=== PATIENT | female | born 2000 | race Two or more races ===

== ENCOUNTER 2025-03-01 11:25 | Emergency (ER) | payer MEDICAID, SELFPAY ==
[2025-03-01 12:01] VITALS: BP 113/80; PULSE 89; RESP 17; TEMP 36.8; O2SAT 100
--- NOTE | 2025-03-01 12:12 | XR_ITS ---
Examination: CT abdomen and pelvis without contrast. Coronal 3-D reconstructions. Sagittal 2-D reconstructions. Date and time of exam:March 01, 2025 1516 hours Comparison March 13, 2024 INDICATIONS: Generalized abdominal pain and flank pain today CTDI: vol (mGy): 7.77 DLP: (mGycm): 384 Technique: Axial images of the abdomen have been obtained, 3 mm slice thickness Intravenous contrast material has not been administered. Low dose protocols were performed. One or more of the following dose reduction techniques were used; automated exposure control, adjustment of the mA and/or KV according to patient size, use of iterative reconstruction technique. Findings: No focal liver or splenic lesions No gallstones No pancreatic or adrenal mass No renal or ureteral calculi, no hydronephrosis Aorta normal size Tiny fat-containing umbilical hernia Small lymph nodes in the right lower mesentery No bowel obstruction Mild to moderate free fluid in the pelvis No bladder mass or bladder calculi No pericecal inflammatory change Osseous structures are intact IMPRESSION: No renal or ureteral calculi, no hydronephrosis No CT findings of appendicitis bowel obstruction or diverticulitis
--- NOTE | 2025-03-01 12:13 | PD.EDRME ---
Rapid Medical Screening Exam RME Arrival date/time: 03/01/25 11:25 24-year-old female presents emergency department today for complaint of abdominal pain Chief Complaint: Nausea/Vomiting/Diarrhea Vital signs: Vital Signs Temperature 98.2 F 03/01/25 12:01 Pulse Rate 89 03/01/25 12:01 Respiratory Rate 17 03/01/25 12:01 Blood Pressure 113/80 03/01/25 12:01 Pulse Oximetry (%) 100 03/01/25 12:01 Oxygen Delivery Method Room Air 03/01/25 12:01
[2025-03-01 12:34] LABS: Collection Type, Urine Clean Catch
[2025-03-01 12:40] LABS: Basophils % (Auto) 0 % (0-2.5); Eosinophils # (Auto) 0.1 Thou/mm3 (0.0-0.5); Eosinophils % (Auto) 1 % (0-10); Hematocrit 34.5 % (36.0-46.0); Hemoglobin 11.5 g/dL (12.0-16.0); Immature Granulocytes % (Auto) 0 % (0-0); Immature Granulocytes Auto 0.02 Thou/mm3 (0.00-0.00); Lymphocytes # (Auto) 2.8 Thou/mm3 (1.0-4.8); Lymphocytes % (Auto) 33 % (10-50); Mean Corpuscular HGB Conc 33.3 g/dl (31.0-37.0); Mean Corpuscular Volume 75 fL (80-100); Monocytes # (Auto) 0.6 Thou/mm3 (0.0-0.8); Monocytes % (Auto) 7 % (0-12); Neutrophils % (Auto) 59 % (37-80); Nucleated Red Blood Cell % 0 /100 WBC (0); Platelet Count 382 Thou/mm3 (140-440); RDW Standard Deviation 41.4 fL (36.4-46.3); White Blood Count 8.4 Thou/mm3 (3.6-11.0)
[2025-03-01 12:55] LABS: Alanine Aminotransferase 10 U/L (10-49); Albumin/Globulin Ratio 1.9 (1.2-2.2); Alkaline Phosphatase 90 U/L (46-116); Anion Gap 11 (7-16); Aspartate Amino Transferase 16 U/L (0-34); BUN/Creatinine Ratio 15 Ratio (12-20); Bilirubin,Total 0.4 mg/dL (0.3-1.2); Blood Urea Nitrogen 9 mg/dL (9-23); Calcium 9.2 mg/dL (8.3-10.6); Calcium (Corrected) 9.2 mg/dL (8.5-10.1); Carbon Dioxide 25.3 mMol/L (20.0-31.0); Chloride 103 mMol/L (98-107); Creatinine (Component) 0.6 mg/dL (0.6-1.3); Globulin 2.6 gm/dL (2.3-3.5); Glucose 97 mg/dL (74-106); Lipase 34 U/L (12-53); Osmolality,Calculated 276 (275-295); Potassium 3.5 mMol/L (3.4-5.1); Sodium 139 mMol/L (136-145); Total Protein 7.6 gm/dL (5.7-8.2); eGFR > 60 See Note
[2025-03-01 13:17] LABS: HCG Qualitative,Urine Negative
[2025-03-01 13:37] LABS: Bilirubin,Urine Negative (Negative); Blood,Urine Negative (Negative); Clarity,Urine Turbid (Clear/Hazy); Color,Urine Yellow (Lt Yel-Yel); Culture Indicated,Urine Not Indicated; Glucose, Urine Negative (Negative); Ketones,Urine 2+ (Negative); Leukocyte Esterase,Urine Negative (Negative); Nitrite,Urine Negative (Negative); Protein,Urine 1+ (Neg - Trace); RBC,Urine 1 /hpf (0-3); Specific Gravity,Urine 1.031 (1.001-1.035); Squamous Epithelial Cell,Urine 4 /hpf (0-5); WBC,Urine 3 /hpf (0-5)
--- NOTE | 2025-03-01 16:22 | EDNOTE_ITS ---
Nausea/Vomit./Diarrhea-RME/HPI General Chief complaint: Nausea/Vomiting/Diarrhea Stated complaint: NAUSEA/VOMITING SINCE 02/25, DEHYDRATION Time Seen by Provider: 03/01/25 16:17 Arrival date/time: 03/01/25 11:25 24-year-old female presents emergency department today for complaint of abdominal pain, nausea vomiting and dehydration Limitations: no limitations RME / HPI RME / HPI Narrative: 03/01/25 11:25 24-year-old female presents emergency department today for complaint of abdominal pain Related Data Previous Rx's ?Medication ?Instructions ?Recorded albuterol sulfate 90 mcg/actuation 2 puff inhalation Q 6H PRN 12/17/18 aerosol inhaler bronchospasm #6.7 grams azithromycin 250 mg tablet See Rx Instructions PO .COM PLEX #6 12/17/18 tabs dextromethorphan-guaifenesin 10 10 ml PO Q4H PRN cough #237 mL 12/17/18 mg-100 mg/5 mL oral liquid (Guaiasorb DM) loratadine 10 mg tablet (Claritin) 10 mg PO QDAY #20 t abs 12/17/18 ondansetron 4 mg disintegrating 4 mg PO Q8H #10 tabs 0 03/03/24 tablet metoclopramide HCl 10 mg tablet 10 mg PO Q6H PRN nause a and 03/01/25 (Reglan) vomiting #30 tabs Allergies Allergy/AdvReac Type Severity Reaction Status Date / Time egg Allergy Intermediate UNKNOWN Verified 03/01/25 11:29 Penicillins Allergy Intermediate Rash Verified 03/01/25 11:29 amoxicillin Allergy Unknown Verified 03/01/25 11:29 Review of Systems Review of Systems Systems Reviewed: All systems reviewed, normal except as documented Constitutional Constitutional: Reports system reviewed and no additional complaints, except as documented, Denies fever(s) and Denies headache(s) Eyes Eyes: Reports system reviewed and no additional complaints, except as documented and Denies blurry vision ENT Ears, Nose, Mouth, and Throat: Reports system reviewed and no additional complaints, except as documented, Denies headache(s), Denies nasal congestion and Denies nasal discharge Cardiovascular Cardiovascular: Reports system reviewed and no additional complaints, except as documented, Denies chest pain and Denies dyspnea Respiratory Respiratory: Reports system reviewed and no additional complaints, except as documented, Denies chest congestion, Denies cough and Denies dyspnea Gastrointestinal Gastrointestinal: Reports system reviewed and no additional complaints, except as documented, Reports abdominal pain, Reports loose stools, Reports nausea and Reports vomiting Integumentary/Breasts Skin/Breast: Reports system reviewed and no additional complaints, except as documented and Denies rash Neurologic Neurologic: Reports system reviewed and no additional complaints, except as documented, Reports as per HPI and Denies headache(s) Past Medical History Past Medical History CARDIAC: Negative Congestive Heart Failure RESPIRATORY: Positive Asthma; Negative Chronic Obstructive Pulmonary Disease (COPD) GENITOURINARY: Negative Renal Disease ENDOCRINE: Negative Diabetes Mellitus Type 1 or Diabetes Mellitus Type 2 Social History SMOKING STATUS: Never smoker ED Exam General Limitations: Present no limitations General appearance: Present alert and in no apparent distress Head Head exam: Present atraumatic, normocephalic and normal inspection Eye Eye exam: Present normal appearance, PERRL and EOMI; Absent conjunctival injection ENT ENT exam: Present normal exam, normal oropharynx and mucous membranes moist Neck Neck exam: Present normal inspection, full ROM and trachea midline Chest Chest inspection: Present normal inspection and symmetric chest wall rise Respiratory Respiratory exam: Present normal lung sounds bilaterally; Absent respiratory distress Cardiovascular Cardiovascular exam: Present regular rate, normal rhythm and normal heart sounds Abdominal Exam Abdominal exam: Present soft and normal bowel sounds; Absent distention, tenderness, guarding, rebound or rigidity Extremities Exam Extremities exam: Present normal inspection and full ROM Back Exam Back exam: Present normal inspection and full ROM Neurological Exam Neurological exam: Present alert, oriented X3, CN II-XII intact, normal gait and reflexes normal; Absent motor sensory deficit Psychiatric Psychiatric exam: Present normal affect and normal mood Skin Skin exam: Present warm, dry, intact and normal color; Absent rash Course Quality Measures none Orders Category Date Time Status Insert IV NOW Care 03/01/25 16:[address] abdomen pelvis wo con Stat Exams 03/01/25 12:12 Completed CBC Stat Lab 03/01/25 12:27 Completed Comprehensive Metabolic Panel Stat Lab 03/01/25 12:27 Completed HCG Qualitative,Urine Stat Lab 03/01/25 12:27 Completed Lipase Stat Lab 03/01/25 12:27 Completed UA, C/S IF [Urinalysis, C/S if Indicated] Stat Lab 03/01/25 12:27 Completed Metoclopramide Inj [Reglan Inj] Med 03/01/25 16:22 Discontinued 10 mg IVP X1 ONE Sodium Chloride 0.9% 1000 ml [Ns] 1,000 ml Med 03/01/25 16:22 Discontinued IV 999 mls/hr Vital Signs Vital signs: Vital Signs Temperature 98.2 F 03/01/25 12:01 Pulse Rate 89 03/01/25 12:01 Respiratory Rate 17 03/01/25 12:01 Blood Pressure 113/80 03/01/25 12:01 Pulse Oximetry (%) 100 03/01/25 12:01 Oxygen Delivery Method Room Air 03/01/25 12:01 O2 saturation 100% on room air within normal limits Nausea/Vomiting/Diarrhea MDM Narrative MDM Narrative:: 24-year-old female presents emergency department today for complaint of abdominal pain, nausea vomiting and dehydration On exam patient well-appearing patient's not appear ill or toxic no acute distress Lab work and imaging came acute emergent findings noted Patient given IV fluids and medication for nausea patient reports symptoms are significantly better patient thankful for care Patient discharged home in no distress to follow-up with primary care doctor in the next 24 to 48 hours and for any worsening symptoms to return to the ER immediately Patient data External records reviewed:: [facility] previous records Clinical information provided by:: patient Social determinants that could affect healthcare access:: none Patient has the following chronic illnesses:: None How is presenting disease/condition affected by chronic disease/condition?: no chronic disease Evaluation data The following diagnostics were reviewed and interpreted by me:: lab results and radiology exam(s) Lab and/or radiology exams considered but not ordered:: Labs radiology obtained Interpretation Summary: Read by me Medications / Prescriptions Medications / Prescriptions considered but not ordered:: Given Medication administrations:: Medication Administration History Discontinued Medications Sodium Chloride (Ns) 1,000 mls @ 999 mls/hr IV .Q1H1M ONE Stop: 03/01/25 17:22 Last Infusion: 03/01/25 17:18 Dose: Infused Documented By: Admin: 03/01/25 16:31 Dose: 999 mls/hr Documented By: OA Metoclopramide HCl (Metoclopramide Inj 5 Mg/Ml Vial 2 Ml) 10 mg IVP X1 ONE; Protocol Stop: 03/01/25 16:23 Last Admin: 03/01/25 17:10 Dose: 10 mg Documented By: ER Given Consultations Consultation(s) initiated? (list below): No Diagnosis Nausea Differential Diagnosis: traveler's diarrhea, food poisoning and gastroe nteritis Most likely diagnosis given after review of the tests above:: Nausea vomiting Admission Indicated Admission indicated?: not indicated Admission Request Was there a request for admission?: No Disposition Plan Disposition Plan: Discharge Discharge Attestation Discharge Attestation: The patient and all family members were given an opportunity to ask questions and understood the discharge instructions. Discharge instructions specifically effects, indications for sooner follow up or return to the emergency department, and the expected course of current diagnosis. Patient condition: Stable Discharge Plan Plan Patient Disposition: HOME (Self Care) Discharge Disposition comment: Stable Prescriptions/Referrals Prescriptions/Med Rec: New metoclopramide HCl [Reglan] 10 mg tablet 10 mg PO Q6H PRN (Reason: nausea and vomiting) Qty: 30 0RF No Action azithromycin 250 mg tablet See Rx Instructions .ROUTE .COMPLEX Qty: 6 0RF Rx Instructions: take 500 mg today (day 1), then 250 mg for 4 days (days 2-5) dextromethorphan-guaifenesin [Guaiasorb DM] 10-100 mg/5 mL liquid 10 ml PO Q4H PRN (Reason: cough) Qty: 237 0RF loratadine [Claritin] 10 mg tablet 10 mg PO QDAY Qty: 20 0RF albuterol sulfate 90 mcg/actuation HFA aerosol inhaler 2 puff INH Q6H PRN (Reason: bronchospasm) Qty: 6.7 0RF ondansetron 4 mg tablet,disintegrating 4 mg PO Q8H Qty: 10 0RF Referrals: Roni Jorgensen MD [Primary Care Provider] - 03/02/25 Problem List Clinical Impression: Nausea & vomiting Patient/Caregiver Discharge Instructions Education Materials: ED Vomiting (Adult) Additional Instructions: Please follow up with your primary care doctor in the next 24-48hrs for any worsening symptoms return here immediately Print Language: Hungarian Stand Alone Forms: Alison Award Info., Work/School Release, Patient Portal Info Letter PA/CONTRACTING MANAGER Supervising Physician PA/JULI Supervising Physician: Dr. greene
[2025-03-01] MEDS: SODIUM CHLORIDE 0.9% 1000 ML 1,000 ML 999 ML IV (16:31)
[2025-03-01] MEDS: METOCLOPRAMIDE INJ 5 MG/ML VIAL 2 ML 10 MG IVP (17:10)
== END 2025-03-01 17:43 | disposition home or self-care (01) ==
PROVIDERS: Nurse Practitioner Primary Care; Emergency Provider Emergency Medicine; PCP Student in an Organized Health Care Education/Training Program
DX: R11.2 Nausea with vomiting, unspecified (principal); R10.84 Generalized abdominal pain
CPT/HCPCS: 36415; 74176; 80053; 81001; 81025; 83690; 85025; J2765; J7030